=== PATIENT | female | born 1985 | race Two or more races ===

== ENCOUNTER 2024-02-01 12:38 | Emergency (ER) | payer OTHER ==
[~2024-02-01] VITALS: Ht 162.6 cm; Wt 72.6 kg
[2024-02-01] MEDS ORDERED: IPRATROPIUM BROMIDE 0.5 MG/2.5 ML AMPUL.NEB IH SCH (14:00)
[2024-02-01] MEDS ORDERED: METHYLPREDNISOLONE SOD SUCC 125 MG VIAL IV ONE (14:00)
[2024-02-01] MEDS ORDERED: LEVALBUTEROL HCL 1.25 MG/3 ML SOLUTION IH SCH (14:00)
[2024-02-01 14:34] LABS: HEMOGLOBIN 15.1 g/dL (12.0-15.00); MEAN CELL VOLUME 91.4 fL (80.00-100.00); MEAN CORPUSCULAR HEMOGLOBIN 31.4 pg (27.00-32.0); MEAN CORPUSCULAR HGB CONC 34.4 g/dl (32.0-36.0); PLATELET COUNT 231 K/uL (150-450); RED BLOOD COUNT 4.81 M/uL (4.00-6.00); RED CELL DISTRIBUTION WIDTH 13.5 % (11.5-14.5)
== END 2024-02-01 17:15 | disposition home or self-care (01) ==
LOC: ER 12:39
PROVIDERS: General Practice
DX: J45.909 Unspecified asthma, uncomplicated (principal)